=== PATIENT | female | born 1990 | race Caucasian/White ===

== ENCOUNTER 2025-02-04 20:13 | Emergency (ER) | payer OTHER, SELFPAY ==
[2025-02-04 20:18] VITALS: BP 130/84
[2025-02-04 20:51] LABS: Hematocrit 36.2 % (37.0-47.0); Hemoglobin 12.6 g/dL (12.0-16.0); Mean Corp Hgb Conc. 34.8 g/dL (33.0-37.0); Mean Corpuscular Volume 82.1 fL (81.0-99.0); Nucleated Red Blood Cells % 0 %; Platelet Count 240 10^3/uL (130-400); Red Cell Dist. Width 13.4 % (11.5-14.5)
[2025-02-04 20:54] LABS: HCG, Serum Qualitative Screen Positive
[2025-02-04 21:01] LABS: ALT (SGPT) 16 U/L (0-35); AST (SGOT) 17 U/L (14-36); Albumin 4.5 g/dl (3.5-5.0); Alkaline Phosphatase 43 U/L (38-126); Blood Urea Nitrogen 12 mg/dl (7-17); Calcium 10.1 mg/dl (8.4-10.2); Carbon Dioxide 23 mmol/L (22-30); Chloride 103 mmol/L (98-107); Glucose 94 mg/dl (70-99); Potassium 3.5 mmol/L (3.5-5.1); Sodium 133 mmol/L (135-145); Total Protein 7.7 g/dl (6.3-8.2); eGFR > 60.00
[2025-02-04 21:40] LABS: Beta HCG Quantitative 46111.00 mIU/ml
[2025-02-04 21:54] VITALS: BMI 30.2
[2025-02-04 22:00] VITALS: BP 115/72
--- NOTE | 2025-02-04 22:16 | ED.GENMED ---
History of Present Illness
General
Chief Complaint: Problems
Source: patient
Exam Limitations: none
Time Seen by Provider: 02/04/25 21:26
History of Present Illness
History of Present Illness:
34yo female currently at 15 weeks gestation presenting for evaluation of vaginal bleeding. Patient urinated about 2 hours ago and noticed bright red blood on her panty liner. She urinated several more times and noticed blood after wiping so
decided to come to the ED. She reports some mild cramping but states is not unusual for her. She believes she may have a UTI and she has a history of recurrent UTIs. No dizziness or syncope. She follows with Dr. Obregon. Ultrasound earlier in
the was normal other than a right ovarian cyst. She is scheduled for an MRI later this month due to her prior history of ovarian cancer.
Phy Exam
General Physical Exam
General Presentation: well appearing and no apparent distress
General Skin: warm and dry
General Habitus: normal
General Mental: alert
ENT Exam
ENT Exam: normocephalic
Pulmonary Exam
Pulmonary Exam: no respiratory distress
Gastrointestinal Exam
Gastrointestinal Exam: non tender, soft and non distended
Neurological Exam
Neurological Exam: alert
[place] Coma Scale
Eye Opening: Spontaneous
Verbal Response: Oriented
Motor Response: Obeys Commands
GCS Total Score: 15
Skin Exam
Skin Exam: normal color and warm/dry
Psychiatric Exam
Psychiatric Exam: normal mood/affect
Course
Orders/Labs/Results
Orders:
Orders
02/04/25 20:17
Test Result ONCE
02/04/25 20:26
2nd/3rd Trimester US [US 2nd/3rd Trimester] Urgent
Comment:
Reason For Exam: vaginal bleeding
02/04/25 20:38
Type+Screen Urgent
Beta HCG Quantitative Urgent
Is this a screen?: No
Complete Blood Count/With Diff Urgent
Comprehensive Metabolic Panel Urgent
HCG, Serum Qualitative Screen Urgent
02/04/25 22:42
Urinalysis Reflex To Culture Urgent
Date Specimen was Collected: 02/04/25
Time Specimen was Collected: 22:40
Urine Microscopic Reflex Cult Urgent
Urine Culture Urgent
LUZ Source: U
Specimen Description:
Date Specimen was Collected: 02/04/25
Time Specimen was Collected: 22:40
Abnormal Lab Results
02/04/25 02/04/25
20:38 22:42
WBC 12.5 H 10^3/uL
(4.8-10.8)
Hct 36.2 L %
(37.0-47.0)
Abs Immat Gran (auto) 0.1 H 10^3/uL
(0-0.05)
Absolute Neuts (auto) 8.9 H 10^3/uL
(1.4-6.5)
Absolute Monos (auto) 0.7 H 10^3/uL
(0.1-0.6)
Lymphocytes % 20.3 L %
(20.5-51.1)
Sodium 133 L mmol/L
(135-145)
Creatinine 0.5 L mg/dL
(0.6-1.0)
Ur Occult Blood Reflex 4+ A
(Negative)
Leukocyte Esterase Rfl 2+ A
(Negative)
Urine WBC (Reflex) 11-15 A /HPF
(0-5)
Urine Bacteria (Reflex) Few A
(Negative)
02/04/25 20:38
02/04/25 20:38
Vital Signs
Initial and Last Documented VS:
Initial Vital Signs
Temp Pulse Resp BP Pulse Ox
98.4 F 89 18 130/84 98
02/04/25 20:18 02/04/25 20:18 02/04/25 20:18 02/04/25 20:18 02/04/25 20:18
Last Documented Vital Signs
Temp Pulse Resp BP Pulse Ox
98.4 F 87 24 123/74 99
02/04/25 20:18 02/04/25 23:30 02/04/25 23:30 02/04/25 23:30 02/04/25 23:30
Information
Weeks gestation: Weeks: (15)
Location: Location: ([facility])
MDM/Problems Addressed
Differential Diagnosis Includes:
34yoF here with vaginal bleeding. Started with spotting this evening. Currently 15 weeks . Also thinks she may have a UTI. Patient is well appearing and abdominal exam is benign. Differential diagnosis includes: miscarriage, threatened
, subchorionic hemorrhage, less likey ectopic given confirmed [facility] on prior US
Labs obtained in triage. Blood type O positive, no indication for RHOgam. US shows live [facility] with 5.4cm R ovarian mass, complex cyst vs. endometrioma. UA with 2+ leukocytes. No active bleeding on reassessment. She is stable for discharge. She was
started on a course of Keflex to cover for UTI. Patient advised to f/u with OBGYN and she has an appt scheduled on Saturday. ED return precautions reviewed.
*Pulse Oximetry
SaO2: 99
Oxygen Mode of Delivery: Room air
Patient hypoxic: no
*Critical Care Note
Total Time (30-74mins, 75-104mins- exclusive of procedures): Not Applicable
ED Attending Note
-
Portions of this chart may have been created with voice recognition software.� Occasional wrong word or��sound alike� substitutions may have occurred due to the inherent limitations of voice recognition software.
Discharge Plan
Departure
Patient Disposition: Home (Routine Discharge)
Date of Disposition: 02/04/25
Time of Disposition: 23:36
Patient with high blood pressure during this ER visit?: No
Discharge Problem:
Vaginal bleeding in , Urinary tract infection
Instructions: Threatened Miscarriage (DC)
Prescriptions:
New
cephalexin 500 mg capsule
500 mg PO BID Qty: 14 0RF
No Action
acetaminophen [Tylenol] 325 mg Tablet
650 mg PO Q6HPRN PRN (Reason: mild pain)
Referrals:
NONE,* [Family Provider, Internal Medicine]
Activity Restrictions/Additional Instructions:
Take antibiotics as prescribed.
Please call the PATIENT REPRESENTATIVE tomorrow for follow-up. Return to the ER with any new or worsening symptoms including heavy bleeding (saturating through >2 pads/hour).
Interventions
Interventions:
*Risk Screen - Suicide Last Done: 02/04/25 20:23
*General Assessment Last Done: 02/04/25 22:03
*Neglect/Abuse Screening Last Done: 02/04/25 20:23
*ED- Fall Risk Assessment Last Done: 02/04/25 22:03
*ED COVID-19 Vaccine History Last Done: 02/04/25 22:03
*ED Influenza Vaccine History Last Done: 02/04/25 22:03
*Nursing Disposition Last Done: 02/04/25 23:44
ED-Female Genitourinary Assessment Last Done: 02/04/25 22:04
Discharge Date and Time
Discharge Date/Time: 02/04/25 23:45
Print Language: ARMENIAN
[2025-02-04 22:49] LABS: Urine Character Clear (Clear)
[2025-02-04 22:56] LABS: Urine Red Blood Cell 0-2 /HPF (0-2)
[2025-02-04 23:30] VITALS: BP 123/74
== END 2025-02-04 23:45 | disposition home or self-care (01) ==
LOC: EMR 20:13
PROVIDERS: Emergency Medicine; Physician Assistant; EMERGENCY PHYSICIAN Emergency Medicine; REFERRING PHYSICIAN Obstetrics & Gynecology
DX: O23.42 Unspecified infection of urinary tract in pregnancy, second trimester (principal); N39.0 Urinary tract infection, site not specified; O46.92 Antepartum hemorrhage, unspecified, second trimester; O34.82 Maternal care for other abnormalities of pelvic organs, second trimester; N83.201 Unspecified ovarian cyst, right side; O09.512 Supervision of elderly primigravida, second trimester; Z3A.15 15 weeks gestation of pregnancy
CPT/HCPCS: 99284; 76805; 80053; 81003; 81015; 84702; 84703; 85025; 86850; 86900; 86901; 87086